=== PATIENT | female | born 1985 | race American Indian/Alaskan Native ===

== ENCOUNTER 2018-09-02 12:30 | Emergency (ER) | payer MEDICAID ==
[2018-09-02 12:41] VITALS: BP 152/80
[2018-09-02] MEDS ORDERED: ZOFRAN IV ONE (13:25)
[2018-09-02] MEDS ORDERED: NACL 0.9% 1000 ML 1,000 ML IV ONE (13:25)
[2018-09-02] MEDS ORDERED: PEPCID IV ONE (13:25)
[2018-09-02 13:37] LABS: Bacteria,Urine 1+ /HPF (Negative); Bilirubin,Urine NEG (Negative); Blood,Urine NEG (Negative); Color,Urine Yellow (Yellow); Mucus,Urine FEW /HPF; Protein,Urine <15 mg/dL mg/dL (Negative); Sperm,Urine FEW /HPF (NP); Urobilinogen,Urine < 2.0 mg/dL (<2.0)
[2018-09-02 13:42] LABS: HCG Qualitative,Urine Positive (Negative)
--- NOTE | 2018-09-02 16:06 | Emergency Department Report ---
ED N/V/D HPI - General Chief complaint: Nausea/Vomiting/Diarrhea Stated complaint: 18WKS /D/V Time Seen by Provider: 09/02/18 13:25 Source: patient Mode of arrival: Ambulatory Limitations: No Limitations - History of Present Illness Initial comments: Patient is a 33-year-old female who is approximately 18 weeks who has had multiple episodes of nausea and vomiting since this morning. Patient states she went out to eat and had an omelette and his man vomiting since. She denies any diarrhea fevers or chills. Patient has some crampy diffuse abdominal discomfort more so in the suprapubic region. Patient denies any dysuria or urinary frequency or vaginal bleeding at this time. Patient has had care. - Related Data Previous Rx's Medication Instructions Recorded Last Taken Type Nitrofurantoin Rowan/M-Cryst 100 mg PO Q12HR #14 capsule 09/02/18 Unknown Rx [Macrobid CAP] Ondansetron [Zofran Odt] 4 mg PO Q8HR #10 tab.rapdis 09/02/18 Unknown Rx Allergies Allergy/AdvReac Type Severity Reaction Status Date / Time No Known Allergies Allergy Unverified 09/02/18 12:37 ED Review of Systems ROS: Stated complaint: 18WKS /D/V Other details as noted in HPI Comment: All other systems reviewed and negative ED Past Medical Hx - Past Medical History Previous Medical History?: No - Surgical History Past Surgical History?: No Additional Surgical History: Hernia repair and. C section. - Social History Smoking Status: Former Smoker Substance Use Type: None - Medications Home Medications: Home Medications Medication Instructions Recorded Confirmed Last Taken Type Nitrofurantoin Rowan/M-Cryst 100 mg PO Q12HR #14 capsule 09/02/18 Unknown Rx [Macrobid CAP] Ondansetron [Zofran Odt] 4 mg PO Q8HR #10 tab.rapdis 09/02/18 Unknown Rx ED Physical Exam - General Limitations: No Limitations General appearance: alert, in no apparent distress - Head Head exam: Present: atraumatic, normocephalic - Eye Eye exam: Present: normal appearance - ENT ENT exam: Present: mucous membranes moist - Neck Neck exam: Present: normal inspection - Respiratory Respiratory exam: Present: normal lung sounds bilaterally. Absent: respiratory distress, wheezes, rales - Cardiovascular Cardiovascular Exam: Present: regular rate, normal rhythm. Absent: systolic murmur, diastolic murmur, rubs, gallop - GI/Abdominal GI/Abdominal exam: Present: soft, tenderness (epigastric and suprapubic), normal bowel sounds. Absent: distended, guarding, rebound, rigid - Extremities Exam Extremities exam: Present: normal inspection - Back Exam Back exam: Present: normal inspection - Neurological Exam Neurological exam: Present: alert, oriented X3 - Psychiatric Psychiatric exam: Present: normal affect, normal mood - Skin Skin exam: Present: warm, dry, intact, normal color. Absent: rash ED Course Vital Signs 09/02/18 12:38 Temperature 98 F Pulse Rate 93 H Respiratory 18 Rate Blood Pressure 152/80 O2 Sat by Pulse 98 Oximetry ED Medical Decision Making - Lab Data Lab Results 09/02/18 Range/Units 13:06 Urine Color Yellow (Yellow) Urine Turbidity Turbid (Clear) Urine pH 7.0 (5.0-7.0) Ur Specific Allen 1.018 (1.003-1.030) Urine Protein <15 mg/dl (Negative) mg/dL Urine Glucose (UA) Neg (Negative) mg/dL Urine Ketones Neg (Negative) mg/dL Urine Blood Neg (Negative) Urine Nitrite Neg (Negative) Urine Bilirubin Neg (Negative) Urine Urobilinogen < 2.0 (<2.0) mg/dL Ur Leukocyte Esterase Tr (Negative) Urine WBC (Auto) 11.0 H (0.0-6.0) /HPF Urine RBC (Auto) 1.0 (0.0-6.0) /HPF U Epithel Cells (Auto) 14.0 H (0-13.0) /HPF Urine Bacteria (Auto) 1+ (Negative) /HPF Urine Mucus Few /HPF Urine Yeast (Budding) 3+ /HPF 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 Nausea was improved. Patient's urine analysis shows that she does have a mild UTI beginning. Patient was started on Macrobid. Patient will be discharged home with follow-up with her [employer]. Bedside ultrasound was performed by me which did show good heart tones. Critical care attestation.: If time is entered above; I have spent that time in minutes in the direct care of this critically ill patient, excluding procedure time. ED Disposition Clinical Impression: Acute gastritis Qualifiers: Gastritis type: other gastritis Gastritis bleeding: without bleeding Qualified Code(s): K29.00 - Acute gastritis without bleeding Acute cystitis during Qualifiers: Trimester: second trimester Qualified Code(s): O23.12 - Infections of bladder in , second trimester Disposition: DC- TO HOME OR SELFCARE Is pt being admited?: No Does the pt Need Aspirin: No Condition: Stable Instructions: Gastritis (ED), Urinary Tract Infection in Women (ED) Referrals: MARGOTH KYLE MD [Primary Care Provider] - 3-5 Days Time of Disposition: 16:06
== END 2018-09-02 16:23 | disposition home or self-care (01) ==
LOC: ED 12:30
DX: O23.12 Infections of bladder in pregnancy, second trimester (principal); O99.612 Diseases of the digestive system complicating pregnancy, second trimester; Z79.899 Other long term (current) drug therapy; Z3A.18 18 weeks gestation of pregnancy
CPT/HCPCS: 81001; 81025; 87086; 96361; 96374; 96375; 99283; J2405; J7030